=== PATIENT | female | born 1960 | race Caucasian/White ===

== ENCOUNTER 2017-05-24 15:34 | Emergency (ER) | payer OTHER ==
[2017-05-24 18:27] LABS: BASO # 0.09 K/mm3 (0.0-2.0); BASO % 1.3 % (0.0-3.0); EOS # 0.2 (0.0-0.7); EOS % 3.3 % (1.5-5.0); GRAN # 3.71 (1.4-6.5); GRAN % 54.9 % (50.0-68.0); HEMOGLOBIN 11.6 g/dL (12.0-16.0); LYMPH # 2.3 (1.2-3.4); LYMPH % 33.8 % (22.0-35.0); MEAN CELL VOLUME 89.6 fl (80.0-105.0); MEAN CORPUSCULAR HGB CONC 31.3 g/dl (31.0-37.0); MONO # 0.5 (0.1-0.6); MONO % 6.7 % (1.0-6.0); RBC 4.14 10^6/uL (3.5-6.1); RED CELL DISTRIBUTION WIDTH 13.7 % (11.5-14.5); WHITE BLOOD COUNT 6.8 10^3/ul (4.5-11.0)
[2017-05-24 18:30] LABS: ALB/GLOB RATIO 1.2 (1.1-1.8); ALBUMIN 3.8 g/dL (3.0-4.8); ALT/SGPT 38 U/L (7-56); AST/SGOT 45 U/L (14-36); BLOOD UREA NITROGEN 28 mg/dL (7-21); CALCIUM 9.5 mg/dL (8.4-10.5); GFR AFRICAN-AMERICAN > 60; GFR NON-AFRICAN AMERICAN > 60
[2017-05-24 18:31] LABS: ACETAMINOPHEN < 10.0 ug/ml (10.0-20.0); SALICYLATE < 1 mg/dL (2.0-20.0)
--- NOTE | 2017-05-24 18:44 | ED PDOC ---
Arrival/HPI - General Historian: Patient, Family <Talya Atkinson - Last Filed: 05/25/17 03:36> <Esteban Gallegos - Last Filed: 05/25/17 06:59> - General Chief Complaint: Psychiatric Evaluation Time Seen by Provider: 05/24/17 15:47 - History of Present Illness Narrative History of Present Illness (Text): 05/24/17 18:25 57-year-old female presents today with depression. Patient was discharged from [facility] 2 days ago for depression. per family, pt was doing well yesterday and then after a fight with family today the patient refused to eat and didnt want to talk. pt give very little history. admits to depression. no abdominal pain. no chest pain. (Talya Atkinson) Past Medical History - Provider Review Nursing Documentation Reviewed: Yes - Travel History Have you recently traveled outside US w/in the past 3 mons?: No - Infectious Disease Hx of Infectious Diseases: None - Reproductive Menopause: Yes - Cardiac Hx Hypertension: Yes - Psychiatric Hx Depression: Yes Hx Substance Use: No - Surgical History Hx Cataract Extraction: Yes (ou) - Anesthesia Hx Anesthesia Reactions: No Hx Malignant Hyperthermia: No <Talya Atkinson - Last Filed: 05/25/17 03:36> Family/Social History - Physician Review Nursing Documentation Reviewed: Yes Family/Social History: Unknown Family HX Smoking Status: Never Smoked Hx Alcohol Use: No Hx Substance Use: No <Talya Atkinson - Last Filed: 05/25/17 03:36> Allergies/Home Meds <Talya Atkinson - Last Filed: 05/25/17 03:36> <Esteban Gallegos - Last Filed: 05/25/17 06:59> Allergies/Adverse Reactions: Allergies crabs Allergy (Uncoded 05/24/17 17:38) RASH homeopathic substance Allergy (Uncoded 05/24/17 17:26) RASH Home Medications: Home Meds Medication Instructions Recorded Confirmed No Known Home Med 05/25/17 05/25/17 Review of Systems - Review of Systems Systems not reviewed;Unavailable: Psychotic Cardiovascular: absent: Chest Pain Gastrointestinal: absent: Abdominal Pain, Vomiting Musculoskeletal: absent: Arthralgias Psychiatric: Depression <Talya Atkinson - Last Filed: 05/25/17 03:36> Physical Exam Vital Signs Reviewed: Yes Temperature: Afebrile Blood Pressure: Normal Pulse: Regular Respiratory Rate: Normal Appearance: Positive for: Well-Appearing, Non-Toxic, Comfortable Pain Distress: None Mental Status: Positive for: Alert and Oriented X 3 - Systems Exam Head: Present: Atraumatic Mouth: Present: Moist Mucous Membranes Neck: Present: Normal Range of Motion Respiratory/Chest: Present: Clear to Auscultation, Good Air Exchange. No: Respiratory Distress, Accessory Muscle Use Cardiovascular: Present: Regular Rate and Rhythm, Normal S1, S2. No: Murmurs Abdomen: No: Tenderness, Rebound, Guarding Back: Present: Normal Inspection Upper Extremity: Present: Normal ROM Lower Extremity: Present: Normal ROM Neurological: Present: GCS=15 Skin: Present: Warm, Dry, Normal Color. No: Rashes Psychiatric: Present: Alert, Oriented x 3 <Talya Atkinson - Last Filed: 05/25/17 03:36> Vital Signs Temp Pulse Resp BP Pulse Ox 05/25/17 02:05 81 16 130/82 99 05/25/17 00:00 82 16 124/82 99 05/24/17 22:04 77 16 122/80 99 05/24/17 20:01 98.1 F 05/24/17 17:40 62 18 123/68 99 Medical Decision Making <Talya Atkinson - Last Filed: 05/25/17 03:36> <Esteban Gallegos - Last Filed: 05/25/17 06:59> ED Course and Treatment: 05/24/17 19:17 Patient is nontoxic well-appearing in no distress vital signs are stable. CBC WNL CMP k; 3.3 Tylenol WNL Salicylate WNL Alcohol level WNL Urine drug screen wnl UA; wnl cxr: wnl ekg: Sinus rhythm at [address] elevation qtc 443 potassium given po . pt is medically cleared for PES evaluation Patient was seen and evaluated by PES screener: anabel 05/25/17 03:37 Patient seen by [facility] psychiatric screener. Patient involuntarily committed. Case signed out to Dr. Gallegos pending available bed at [facility] Impression: Depression Transferred to [facility] (Talya Atkinson) Patient endorsed to me by GRADY Atkinson, pending bed placement at [facility] for involuntary psych transfer. 05/25/17 07:00 Case endorsed to .Pt. awaiting [facility] bed availability/transfer (Esteban Gallegos) - Lab Interpretations Lab Results: 05/24/17 18:10 05/24/17 18:10 Lab Results 05/24/17 18:57: Urine Opiates Screen Negative, Urine Methadone Screen Negative, Ur Barbiturates Screen Negative, Ur Phencyclidine Scrn Negative, Ur Amphetamines Screen Negative, U Benzodiazepines Scrn Negative, U Oth Cocaine Metabols Negative, U Cannabinoids Screen Negative 05/24/17 18:57: Urine Color Yellow, Urine Appearance Clear, Urine pH 6.0, Ur Specific [place] 1.020, Urine Protein 30 H, Urine Glucose (UA) Negative, Urine Ketones Trace H, Urine Blood Small H, Urine Nitrate Negative, Urine Bilirubin Negative, Urine Urobilinogen 1.0 H, Ur Leukocyte Esterase Negative, Urine RBC 2 - 5, Urine WBC 1 - 3, Ur Epithelial Cells 1 - 3, Urine Bacteria Few 05/24/17 18:10: Alcohol, Quantitative < 10 05/24/17 18:10: Salicylates < 1 L, Acetaminophen < 10.0 L 05/24/17 18:10: Sodium 149 H, Potassium 3.3 L, Chloride 108 H, Carbon Dioxide 28 , Anion Gap 16, BUN 28 H, Creatinine 0.6 L, Est GFR ( Amer) > 60, Est GFR (Non-Af Amer) > 60, Random Glucose 105, Calcium 9.5, Total Bilirubin 0.5, AST 45 H, ALT 38, Alkaline Phosphatase 52, Total Protein 7.0, Albumin 3.8, Globulin 3.2, Albumin/Globulin Ratio 1.2 05/24/17 18:10: WBC 6.8, RBC 4.14, Hgb 11.6 L, Hct 37.1, MCV 89.6, MCH 28.0, MCHC 31.3, RDW 13.7, Plt Count 270, MPV 9.0, Gran % 54.9, Lymph % (Auto) 33.8, [place] % (Auto) 6.7 H, Eos % (Auto) 3.3, Baso % (Auto) 1.3, Gran # 3.71, Lymph # ( Auto) 2.3, [place] # (Auto) 0.5, Eos # (Auto) 0.2, Baso # (Auto) 0.09 - RAD Interpretation Radiology Orders: 05/24/17 17:41 CHEST PORTABLE [RAD] Stat - Medication Orders Current Medication Orders: Discontinued Medications Potassium Chloride (K-Dur 20 Meq Er Tab) 40 meq PO STAT STA Stop: 05/24/17 19:07 Last Admin: 05/24/17 19:37 Dose: 40 meq - 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 /DO has examined the patient and agrees with the treatment plan. <Esteban Gallegos - Last Filed: 05/25/17 06:59> Disposition/Present on Arrival - Present on Arrival Any Indicators Present on Arrival: No History of DVT/PE: No History of Uncontrolled Diabetes: No Urinary Catheter: No History of Decub. Ulcer: No History Surgical Site Infection Following: None - Disposition Have Diagnosis and Disposition been Completed?: Yes Disposition Time: 03:38 Patient Plan: Transfer To ([facility]) <Talya Atkinson - Last Filed: 05/25/17 03:36> <Esteban Gallegos - Last Filed: 05/25/17 06:59> - Disposition Diagnosis: Depression Patient Problems: Current Active Problems Problem Status Onset Depression Acute Condition: FAIR Referrals: Renate Clark, [Primary Care Provider] - Follow up with primary Forms: [employer] (Canadian)
[2017-05-24] MEDS ORDERED: Potassium Chloride 20 mEq ER Tab PO STA (19:06)
[2017-05-24 19:33] LABS: URINE BILIRUBIN NEGATIVE (NEGATIVE); URINE BLOOD SMALL (NEGATIVE); URINE GLUCOSE (UA) NEGATIVE (NEGATIVE); URINE LEUKOCYTE ESTERASE NEGATIVE Leu/uL (NEGATIVE); URINE NITRATE NEGATIVE (NEGATIVE); URINE PROTEIN 30 mg/dL (<30 mg/dL)
[2017-05-24 19:38] LABS: URINE APPEARANCE CLEAR (CLEAR); URINE COLOR YELLOW (YELLOW)
[2017-05-24 19:46] LABS: URINE BACTERIA FEW (NEG)
[2017-05-24 19:58] LABS: BARBITURATES, UR NEGATIVE (NEGATIVE); BENZODIAZEPINES, UR NEGATIVE (NEGATIVE); OPIATES, UR NEGATIVE (NEGATIVE); PHENCYCLIDINE, UR NEGATIVE (NEGATIVE)
--- NOTE | 2017-05-25 07:41 | ED PDOC ---
Physical Exam Vital Signs Temp Pulse Resp BP Pulse Ox 05/25/17 07:28 97.9 F 79 18 128/79 98 05/25/17 02:05 81 16 130/82 99 05/25/17 00:00 82 16 124/82 99 05/24/17 22:04 77 16 122/80 99 05/24/17 20:01 98.1 F 05/24/17 17:40 62 18 123/68 99 Medical Decision Making ED Course and Treatment: 05/25/17 07:39 Patient endorsed to me from previous shift. Patient in no acute distress. Resting comfortably. Afebrile. Neuro intact. No chest pain or shortness of breath. Patient's previous labs reviewed. Denies headache. No nausea. Currently no complaints. Will continue serial exams. Awaiting bed at [facility]. 05/25/17 18:52 Patient comfortable. No physcial complaints. Awating final disposition by mental health. Case endorsed to Dr. Gallegos for follow-up exams and disposition. - Lab Interpretations Lab Results: 05/24/17 18:10 05/24/17 18:10 Lab Results 05/24/17 18:57: Urine Opiates Screen Negative, Urine Methadone Screen Negative, Ur Barbiturates Screen Negative, Ur Phencyclidine Scrn Negative, Ur Amphetamines Screen Negative, U Benzodiazepines Scrn Negative, U Oth Cocaine Metabols Negative, U Cannabinoids Screen Negative 05/24/17 18:57: Urine Color Yellow, Urine Appearance Clear, Urine pH 6.0, Ur Specific [place] 1.020, Urine Protein 30 H, Urine Glucose (UA) Negative, Urine Ketones Trace H, Urine Blood Small H, Urine Nitrate Negative, Urine Bilirubin Negative, Urine Urobilinogen 1.0 H, Ur Leukocyte Esterase Negative, Urine RBC 2 - 5, Urine WBC 1 - 3, Ur Epithelial Cells 1 - 3, Urine Bacteria Few 05/24/17 18:10: Alcohol, Quantitative < 10 05/24/17 18:10: Salicylates < 1 L, Acetaminophen < 10.0 L 05/24/17 18:10: Sodium 149 H, Potassium 3.3 L, Chloride 108 H, Carbon Dioxide 28 , Anion Gap 16, BUN 28 H, Creatinine 0.6 L, Est GFR ( Amer) > 60, Est GFR (Non-Af Amer) > 60, Random Glucose 105, Calcium 9.5, Total Bilirubin 0.5, AST 45 H, ALT 38, Alkaline Phosphatase 52, Total Protein 7.0, Albumin 3.8, Globulin 3.2, Albumin/Globulin Ratio 1.2 05/24/17 18:10: WBC 6.8, RBC 4.14, Hgb 11.6 L, Hct 37.1, MCV 89.6, MCH 28.0, MCHC 31.3, RDW 13.7, Plt Count 270, MPV 9.0, Gran % 54.9, Lymph % (Auto) 33.8, [place] % (Auto) 6.7 H, Eos % (Auto) 3.3, Baso % (Auto) 1.3, Gran # 3.71, Lymph # ( Auto) 2.3, [place] # (Auto) 0.5, Eos # (Auto) 0.2, Baso # (Auto) 0.09 - RAD Interpretation Radiology Orders: 05/24/17 17:41 CHEST PORTABLE [RAD] Stat - Medication Orders Current Medication Orders: Escitalopram Oxalate (Lexapro) 5 mg PO DAILY SILVIANO Last Admin: 05/25/17 16:53 Dose: 5 mg Lorazepam (Ativan) 0.5 mg PO HS SILVIANO Discontinued Medications Potassium Chloride (K-Dur 20 Meq Er Tab) 40 meq PO STAT STA Stop: 05/24/17 19:07 Last Admin: 05/24/17 19:37 Dose: 40 meq Disposition/Present on Arrival - Present on Arrival Any Indicators Present on Arrival: No History of DVT/PE: No History of Uncontrolled Diabetes: No Urinary Catheter: No History of Decub. Ulcer: No History Surgical Site Infection Following: None - Disposition Have Diagnosis and Disposition been Completed?: No Diagnosis: Depression Disposition Time: 19:00 Patient Problems: Current Active Problems Problem Status Onset Depression Acute Condition: FAIR Referrals: [employer] Alondra Realfonso, [Primary Care Provider] - Follow up with primary Forms: [employer] ([place] Citizen)
--- NOTE | 2017-05-25 10:12 | CARD ---
APPROVED REPORT EKG Measurement Heart [id number] [id number] <Conclusion> Normal sinus rhythm PRWP NSSTW changes
--- NOTE | 2017-05-25 10:15 | RAD ---
HISTORY: pes eval COMPARISON: No prior. FINDINGS: LUNGS: No active pulmonary disease. PLEURA: No significant pleural effusion identified, no pneumothorax apparent. CARDIOVASCULAR: Normal. OSSEOUS STRUCTURES: No significant abnormalities. VISUALIZED UPPER ABDOMEN: Normal. OTHER FINDINGS: None. IMPRESSION: No active disease.
--- NOTE | 2017-05-25 19:59 | ED PDOC ---
Physical Exam - Physical Exam Narrative Physical Exam (Text): 05/25/17 19:58 Case was re endorsed back to me from .Pt. resting comfortably.Still awaiting bed availability for transfer to [facility]. Vital Signs Temp Pulse Resp BP Pulse Ox 05/26/17 06:30 16 05/26/17 04:30 82 130/76 05/26/17 02:01 98.1 F 82 16 128/66 99 05/25/17 23:00 82 16 120/66 05/25/17 18:57 67 16 133/86 99 05/25/17 07:28 97.9 F 79 18 128/79 98 05/25/17 02:05 81 16 130/82 99 05/25/17 00:00 82 16 124/82 99 05/24/17 22:04 77 16 122/80 99 05/24/17 20:01 98.1 F 05/24/17 17:40 62 18 123/68 99 Medical Decision Making - Lab Interpretations Lab Results: 05/24/17 18:10 05/24/17 18:10 Lab Results 05/24/17 18:57: Urine Opiates Screen Negative, Urine Methadone Screen Negative, Ur Barbiturates Screen Negative, Ur Phencyclidine Scrn Negative, Ur Amphetamines Screen Negative, U Benzodiazepines Scrn Negative, U Oth Cocaine Metabols Negative, U Cannabinoids Screen Negative 05/24/17 18:57: Urine Color Yellow, Urine Appearance Clear, Urine pH 6.0, Ur Specific [place] 1.020, Urine Protein 30 H, Urine Glucose (UA) Negative, Urine Ketones Trace H, Urine Blood Small H, Urine Nitrate Negative, Urine Bilirubin Negative, Urine Urobilinogen 1.0 H, Ur Leukocyte Esterase Negative, Urine RBC 2 - 5, Urine WBC 1 - 3, Ur Epithelial Cells 1 - 3, Urine Bacteria Few 05/24/17 18:10: Alcohol, Quantitative < 10 05/24/17 18:10: Salicylates < 1 L, Acetaminophen < 10.0 L 05/24/17 18:10: Sodium 149 H, Potassium 3.3 L, Chloride 108 H, Carbon Dioxide 28 , Anion Gap 16, BUN 28 H, Creatinine 0.6 L, Est GFR ( Amer) > 60, Est GFR (Non-Af Amer) > 60, Random Glucose 105, Calcium 9.5, Total Bilirubin 0.5, AST 45 H, ALT 38, Alkaline Phosphatase 52, Total Protein 7.0, Albumin 3.8, Globulin 3.2, Albumin/Globulin Ratio 1.2 05/24/17 18:10: WBC 6.8, RBC 4.14, Hgb 11.6 L, Hct 37.1, MCV 89.6, MCH 28.0, MCHC 31.3, RDW 13.7, Plt Count 270, MPV 9.0, Gran % 54.9, Lymph % (Auto) 33.8, [place] % (Auto) 6.7 H, Eos % (Auto) 3.3, Baso % (Auto) 1.3, Gran # 3.71, Lymph # ( Auto) 2.3, [place] # (Auto) 0.5, Eos # (Auto) 0.2, Baso # (Auto) 0.09 - RAD Interpretation Radiology Orders: 05/24/17 17:41 CHEST PORTABLE [RAD] Stat - Medication Orders Current Medication Orders: Escitalopram Oxalate (Lexapro) 5 mg PO DAILY SILVIANO Last Admin: 05/25/17 16:53 Dose: 5 mg Lorazepam (Ativan) 0.5 mg PO HS SILVIANO Discontinued Medications Potassium Chloride (K-Dur 20 Meq Er Tab) 40 meq PO STAT STA Stop: 05/24/17 19:07 Last Admin: 05/24/17 19:37 Dose: 40 meq - Transfer of Care Patient signed out to Dr:: Tatiana Other: Awaiting bed availability/final disposition Disposition/Present on Arrival - Present on Arrival Any Indicators Present on Arrival: No History of DVT/PE: No History of Uncontrolled Diabetes: No Urinary Catheter: No History of Decub. Ulcer: No History Surgical Site Infection Following: None - Disposition Have Diagnosis and Disposition been Completed?: No Diagnosis: Depression Disposition Time: 07:00 Patient Problems: Current Active Problems Problem Status Onset Depression Acute Condition: FAIR Referrals: [facility] Alondra Realfonso, [Primary Care Provider] - Follow up with primary Forms: [employer] (Serbian)
[2017-05-26] MEDS ORDERED: Phenylephrine 10 mg/ml Inj ONE (08:21)
--- NOTE | 2017-05-26 11:30 | ED PDOC ---
Physical Exam Vital Signs Temp Pulse Resp BP Pulse Ox 05/26/17 17:51 97.7 F 73 18 133/72 98 05/26/17 08:12 97.8 F 78 16 131/75 99 05/26/17 06:30 16 05/26/17 04:30 82 130/76 05/26/17 02:01 98.1 F 82 16 128/66 99 05/25/17 23:00 82 16 120/66 05/25/17 18:57 67 16 133/86 99 05/25/17 07:28 97.9 F 79 18 128/79 98 05/25/17 02:05 81 16 130/82 99 05/25/17 00:00 82 16 124/82 99 05/24/17 22:04 77 16 122/80 99 05/24/17 20:01 98.1 F 05/24/17 17:40 62 18 123/68 99 Medical Decision Making ED Course and Treatment: 05/26/17 11:28 Patient is a 57 yo female endorsed to me from previous shift. I reviewed previous notes. On re-exam, she is resting comfortably, eating without difficulty. Awaiting final disposition from [facility]. 05/26/17 19:16 Patient resting. No acute distress. Vitals stable. Awaiting final disposition. Case endorsed to Dr. Gallegos. - Lab Interpretations Lab Results: 05/24/17 18:10 05/24/17 18:10 Lab Results 05/24/17 18:57: Urine Opiates Screen Negative, Urine Methadone Screen Negative, Ur Barbiturates Screen Negative, Ur Phencyclidine Scrn Negative, Ur Amphetamines Screen Negative, U Benzodiazepines Scrn Negative, U Oth Cocaine Metabols Negative, U Cannabinoids Screen Negative 05/24/17 18:57: Urine Color Yellow, Urine Appearance Clear, Urine pH 6.0, Ur Specific [place] 1.020, Urine Protein 30 H, Urine Glucose (UA) Negative, Urine Ketones Trace H, Urine Blood Small H, Urine Nitrate Negative, Urine Bilirubin Negative, Urine Urobilinogen 1.0 H, Ur Leukocyte Esterase Negative, Urine RBC 2 - 5, Urine WBC 1 - 3, Ur Epithelial Cells 1 - 3, Urine Bacteria Few 05/24/17 18:10: Alcohol, Quantitative < 10 05/24/17 18:10: Salicylates < 1 L, Acetaminophen < 10.0 L 05/24/17 18:10: Sodium 149 H, Potassium 3.3 L, Chloride 108 H, Carbon Dioxide 28 , Anion Gap 16, BUN 28 H, Creatinine 0.6 L, Est GFR ( Amer) > 60, Est GFR (Non-Af Amer) > 60, Random Glucose 105, Calcium 9.5, Total Bilirubin 0.5, AST 45 H, ALT 38, Alkaline Phosphatase 52, Total Protein 7.0, Albumin 3.8, Globulin 3.2, Albumin/Globulin Ratio 1.2 05/24/17 18:10: WBC 6.8, RBC 4.14, Hgb 11.6 L, Hct 37.1, MCV 89.6, MCH 28.0, MCHC 31.3, RDW 13.7, Plt Count 270, MPV 9.0, Gran % 54.9, Lymph % (Auto) 33.8, [place] % (Auto) 6.7 H, Eos % (Auto) 3.3, Baso % (Auto) 1.3, Gran # 3.71, Lymph # ( Auto) 2.3, [place] # (Auto) 0.5, Eos # (Auto) 0.2, Baso # (Auto) 0.09 - RAD Interpretation Radiology Orders: 05/24/17 17:41 CHEST PORTABLE [RAD] Stat - Medication Orders Current Medication Orders: Escitalopram Oxalate (Lexapro) 5 mg PO DAILY SILVIANO Last Admin: 05/26/17 10:14 Dose: 5 mg Lorazepam (Ativan) 0.5 mg PO HS SILVIANO Discontinued Medications Potassium Chloride (K-Dur 20 Meq Er Tab) 40 meq PO STAT STA Stop: 05/24/17 19:07 Last Admin: 05/24/17 19:37 Dose: 40 meq Disposition/Present on Arrival - Present on Arrival Any Indicators Present on Arrival: No History of DVT/PE: No History of Uncontrolled Diabetes: No Urinary Catheter: No History of Decub. Ulcer: No History Surgical Site Infection Following: None - Disposition Have Diagnosis and Disposition been Completed?: No Diagnosis: Depression Disposition Time: 19:00 Patient Problems: Current Active Problems Problem Status Onset Depression Acute Condition: FAIR Referrals: [facility]bris Alondra Req, [Primary Care Provider] - Follow up with primary Forms: [employer] (Jamaican)
[2017-05-26 17:52] VITALS: TEMP 97.7
--- NOTE | 2017-05-26 20:05 | ED PDOC ---
Physical Exam - Physical Exam Narrative Physical Exam (Text): 05/26/17 20:04 Case re-endorsed back to me from .Pt. still awaiting final disposition from [facility].Currently resting comfortably. Vital Signs Temp Pulse Resp BP Pulse Ox 05/27/17 04:00 67 18 119/69 100 05/27/17 02:00 73 18 129/64 99 05/26/17 22:00 72 18 128/82 100 05/26/17 21:00 66 16 132/71 99 05/26/17 20:00 63 16 132/74 97 05/26/17 17:51 97.7 F 73 18 133/72 98 05/26/17 08:12 97.8 F 78 16 131/75 99 05/26/17 06:30 16 05/26/17 04:30 82 130/76 05/26/17 02:01 98.1 F 82 16 128/66 99 05/25/17 23:00 82 16 120/66 05/25/17 18:57 67 16 133/86 99 05/25/17 07:28 97.9 F 79 18 128/79 98 05/25/17 02:05 81 16 130/82 99 05/25/17 00:00 82 16 124/82 99 05/24/17 22:04 77 16 122/80 99 05/24/17 20:01 98.1 F 05/24/17 17:40 62 18 123/68 99 Medical Decision Making - Lab Interpretations Lab Results: 05/24/17 18:10 05/24/17 18:10 Lab Results 05/24/17 18:57: Urine Opiates Screen Negative, Urine Methadone Screen Negative, Ur Barbiturates Screen Negative, Ur Phencyclidine Scrn Negative, Ur Amphetamines Screen Negative, U Benzodiazepines Scrn Negative, U Oth Cocaine Metabols Negative, U Cannabinoids Screen Negative 05/24/17 18:57: Urine Color Yellow, Urine Appearance Clear, Urine pH 6.0, Ur Specific [place] 1.020, Urine Protein 30 H, Urine Glucose (UA) Negative, Urine Ketones Trace H, Urine Blood Small H, Urine Nitrate Negative, Urine Bilirubin Negative, Urine Urobilinogen 1.0 H, Ur Leukocyte Esterase Negative, Urine RBC 2 - 5, Urine WBC 1 - 3, Ur Epithelial Cells 1 - 3, Urine Bacteria Few 05/24/17 18:10: Alcohol, Quantitative < 10 05/24/17 18:10: Salicylates < 1 L, Acetaminophen < 10.0 L 05/24/17 18:10: Sodium 149 H, Potassium 3.3 L, Chloride 108 H, Carbon Dioxide 28 , Anion Gap 16, BUN 28 H, Creatinine 0.6 L, Est GFR ( Amer) > 60, Est GFR (Non-Af Amer) > 60, Random Glucose 105, Calcium 9.5, Total Bilirubin 0.5, AST 45 H, ALT 38, Alkaline Phosphatase 52, Total Protein 7.0, Albumin 3.8, Globulin 3.2, Albumin/Globulin Ratio 1.2 05/24/17 18:10: WBC 6.8, RBC 4.14, Hgb 11.6 L, Hct 37.1, MCV 89.6, MCH 28.0, MCHC 31.3, RDW 13.7, Plt Count 270, MPV 9.0, Gran % 54.9, Lymph % (Auto) 33.8, [place] % (Auto) 6.7 H, Eos % (Auto) 3.3, Baso % (Auto) 1.3, Gran # 3.71, Lymph # ( Auto) 2.3, [place] # (Auto) 0.5, Eos # (Auto) 0.2, Baso # (Auto) 0.09 - RAD Interpretation Radiology Orders: 05/24/17 17:41 CHEST PORTABLE [RAD] Stat - Medication Orders Current Medication Orders: Escitalopram Oxalate (Lexapro) 5 mg PO DAILY SILVIANO Last Admin: 05/26/17 10:14 Dose: 5 mg Lorazepam (Ativan) 0.5 mg PO HS SILVIANO Discontinued Medications Potassium Chloride (K-Dur 20 Meq Er Tab) 40 meq PO STAT STA Stop: 05/24/17 19:07 Last Admin: 05/24/17 19:37 Dose: 40 meq - Transfer of Care Patient signed out to Dr:: Richard Other: Pt. resting comfortably awaiting bed availability/transfer. Disposition/Present on Arrival - Present on Arrival Any Indicators Present on Arrival: No History of DVT/PE: No History of Uncontrolled Diabetes: No Urinary Catheter: No History of Decub. Ulcer: No History Surgical Site Infection Following: None - Disposition Have Diagnosis and Disposition been Completed?: No Diagnosis: Depression Disposition Time: 07:00 Patient Problems: Current Active Problems Problem Status Onset Depression Acute Condition: FAIR Referrals: [employer] [facility] Req, [Primary Care Provider] - Follow up with primary Forms: [employer] (Frisian)
[2017-05-26 23:23] VITALS: RESP 18
--- NOTE | 2017-05-27 01:05 | CON ---
DATE: HISTORY OF PRESENT ILLNESS: The patient is a 57-year-old female with a history of major depressive disorder with recent discharge from [facility] two days prior to her presentation to our ER on 05/24/2017 with her family because the patient refused to eat, communicate and reported continued depression after a fight with her family. Patient was generally unwilling to provide information to multiple different clinicians who interviewed her, but did indicate consistently that she was very depressed and she was in the ER because her family wanted her to be in the ER. I met with her today and she guarded and acts a little oblivious. Patient indicates that she is depressed, but not suicidal and she is only in the hospital because of her family wants her to be in the hospital. She does not give much more information and cannot provide me the circumstances that led to her family to bring her to the hospital. Does not know the medication she was discharged on from [facility]. Her affect is notably constricted and she was internally preoccupied, but she denies hallucinations. She does not respond to internal stimuli but I agree there is some and catatonic like features in her presentation though it may be volitional. This provider cannot rule it out. Thus far, she has been in good control on the unit. It is unclear what this patient was discharged on from [facility], so this provider started Lexapro 5 mg daily and Ativan 0.5 mg at bedtime. Patient denied any issues with taking the medication. Denied any side effects, although she does not take any of the . Insight and judgement continue to be poor. PHYSICAL EXAMINATION: VITAL SIGNS: Within normal limits a.m. LABORATORY DATA: Her labs were also reviewed by this provider and it only notable for low hemoglobin of 11.6 . Chemistry profile was noted. Sodium was 149, potassium was 3.3, chloride was 108, BUN is 28, creatinine 0.6. AST was 45. UDS was negative. IMPRESSION: Major depressive disorder, severe; rule out psychotic features; rule out catatonic features; rule out personality disorder. RECOMMENDATIONS: We will continue with Lexapro 5 mg daily as well as Ativan 0.5 mg at bedtime at [facility]; however, no beds were available. She has been . Oanh Pyle MD
--- NOTE | 2017-05-27 07:16 | ED PDOC ---
Physical Exam Vital Signs Reviewed: Yes Vital Signs Temp Pulse Resp BP Pulse Ox 05/27/17 04:00 67 18 119/69 100 05/27/17 02:00 73 18 129/64 99 05/26/17 22:00 72 18 128/82 100 05/26/17 21:00 66 16 132/71 99 05/26/17 20:00 63 16 132/74 97 05/26/17 17:51 97.7 F 73 18 133/72 98 05/26/17 08:12 97.8 F 78 16 131/75 99 05/26/17 06:30 16 05/26/17 04:30 82 130/76 05/26/17 02:01 98.1 F 82 16 128/66 99 05/25/17 23:00 82 16 120/66 05/25/17 18:57 67 16 133/86 99 05/25/17 07:28 97.9 F 79 18 128/79 98 05/25/17 02:05 81 16 130/82 99 05/25/17 00:00 82 16 124/82 99 05/24/17 22:04 77 16 122/80 99 05/24/17 20:01 98.1 F 05/24/17 17:40 62 18 123/68 99 Blood Pressure: Normal Pulse: Regular Respiratory Rate: Normal Appearance: Positive for: Well-Appearing, Non-Toxic, Comfortable Pain Distress: None Mental Status: Positive for: Alert and Oriented X 3 Medical Decision Making ED Course and Treatment: 05/27/17 07:15 Case signed out to me by Dr. Gallegos. Pending [facility] transfer/bed availability. 05/27/17 16:26 pt accepted to [facility] [place]. transport arrived. pt in nad. 05/27/17 16:27 - Lab Interpretations Lab Results: 05/24/17 18:10 05/24/17 18:10 Lab Results 05/24/17 18:57: Urine Opiates Screen Negative, Urine Methadone Screen Negative, Ur Barbiturates Screen Negative, Ur Phencyclidine Scrn Negative, Ur Amphetamines Screen Negative, U Benzodiazepines Scrn Negative, U Oth Cocaine Metabols Negative, U Cannabinoids Screen Negative 05/24/17 18:57: Urine Color Yellow, Urine Appearance Clear, Urine pH 6.0, Ur Specific Section 1.020, Urine Protein 30 H, Urine Glucose (UA) Negative, Urine Ketones Trace H, Urine Blood Small H, Urine Nitrate Negative, Urine Bilirubin Negative, Urine Urobilinogen 1.0 H, Ur Leukocyte Esterase Negative, Urine RBC 2 - 5, Urine WBC 1 - 3, Ur Epithelial Cells 1 - 3, Urine Bacteria Few 05/24/17 18:10: Alcohol, Quantitative < 10 05/24/17 18:10: Salicylates < 1 L, Acetaminophen < 10.0 L 05/24/17 18:10: Sodium 149 H, Potassium 3.3 L, Chloride 108 H, Carbon Dioxide 28 , Anion Gap 16, BUN 28 H, Creatinine 0.6 L, Est GFR ( Amer) > 60, Est GFR (Non-Af Amer) > 60, Random Glucose 105, Calcium 9.5, Total Bilirubin 0.5, AST 45 H, ALT 38, Alkaline Phosphatase 52, Total Protein 7.0, Albumin 3.8, Globulin 3.2, Albumin/Globulin Ratio 1.2 05/24/17 18:10: WBC 6.8, RBC 4.14, Hgb 11.6 L, Hct 37.1, MCV 89.6, MCH 28.0, MCHC 31.3, RDW 13.7, Plt Count 270, MPV 9.0, Gran % 54.9, Lymph % (Auto) 33.8, Dent % (Auto) 6.7 H, Eos % (Auto) 3.3, Baso % (Auto) 1.3, Gran # 3.71, Lymph # ( Auto) 2.3, Dent # (Auto) 0.5, Eos # (Auto) 0.2, Baso # (Auto) 0.09 I have reviewed the lab results: Yes - RAD Interpretation Radiology Orders: 05/24/17 17:41 CHEST PORTABLE [RAD] Stat - Medication Orders Current Medication Orders: Escitalopram Oxalate (Lexapro) 5 mg PO DAILY SILVIANO Last Admin: 05/26/17 10:14 Dose: 5 mg Lorazepam (Ativan) 0.5 mg PO HS SILVIANO Last Admin: 05/26/17 22:00 Dose: Discontinued Medications Potassium Chloride (K-Dur 20 Meq Er Tab) 40 meq PO STAT STA Stop: 05/24/17 19:07 Last Admin: 05/24/17 19:37 Dose: 40 meq - Scribe Statement The provider has reviewed the documentation as recorded by the Scribe Belqes Montserrat Provider Carrieibe Attestation: All medical record entries made by the Carrieibsixto were at my direction and personally dictated by me. I have reviewed the chart and agree that the record accurately reflects my personal performance of the history, physical exam, medical decision making, and the department course for this patient. I have also personally directed, reviewed, and agree with the discharge instructions and disposition. Disposition/Present on Arrival - Present on Arrival Any Indicators Present on Arrival: No History of DVT/PE: No History of Uncontrolled Diabetes: No Urinary Catheter: No History of Decub. Ulcer: No History Surgical Site Infection Following: None - Disposition Have Diagnosis and Disposition been Completed?: Yes Diagnosis: Depression Disposition: HOME/ ROUTINE Disposition Time: 04:00 Condition: FAIR Referrals: Renate Clark, [Non-Staff] - Follow up with primary Forms: [email or web address] (Slovenian)
[2017-05-27 07:22] VITALS: O2SAT 99
[2017-05-27 14:48] VITALS: BP 118/67; PULSE 68
== END 2017-05-27 15:45 | disposition short-term general hospital (02) ==
LOC: ED 15:34
DX: F32.9 Major depressive disorder, single episode, unspecified (principal)